=== PATIENT | female | born 1950 | race Two or more races ===

== ENCOUNTER 2018-05-16 09:40 | Inpatient (IN) | payer OTHER ==
[~2018-05-16] VITALS: Ht 165.1 cm; Wt 58.1 kg
[2018-05-16] MEDS ORDERED: RYTARY ER 48.71 EACH PO (09:55)
[2018-05-16] MEDS ORDERED: PRAVASTATIN SOD10 MG PO (09:55)
[2018-05-16] MEDS ORDERED: NEUPRO1 EAC1 TD (09:56)
[2018-05-16] MEDS ORDERED: CLONAZEPAM2 MG PO (09:57)
[2018-05-16] MEDS ORDERED: RESTORIL30 M1 PO (09:57)
[2018-05-16] MEDS ORDERED: LEXA PO (09:58)
[2018-05-21] MEDS ORDERED: LEXAPRO5 MG PO (09:03)
[2018-05-25] MEDS ORDERED: INTESTINEX680 M1 PO (10:09)
[2018-05-25] MEDS ORDERED: ULTRACET PO (10:09)
[2018-05-25] MEDS ORDERED: POLY119PG PO (10:09)
== END 2018-05-25 10:42 | disposition home or self-care (01) | DRG 331 ==
LOC: SURG 05-21 06:26 → O/R 05-21 06:26 → SURH 05-21 08:30 → SURG 05-21 13:58
PROVIDERS: Surgery
PROC: 0DJD8ZZ Inspection of Lower Intestinal Tract, Via Natural or Artificial Opening Endoscopic (ICD-10-PCS; 2018-05-21)
PROC: 0DTN4ZZ Resection of Sigmoid Colon, Percutaneous Endoscopic Approach (ICD-10-PCS; principal; 2018-05-21 08:30)
DX: K56.2 Volvulus (principal); G20 Parkinson's disease; K59.09 Other constipation